=== PATIENT | female | born 1950 | race Caucasian/White ===

== ENCOUNTER 2020-09-22 17:43 | Outpatient (RCR) | payer MEDICARE, OTHER, SELFPAY ==
[2020-09-22] MEDS: COVID-19 VACC, MRNA(PFIZER)/PF 30 MCG/0.3 ML SYRINGE IM (16:17)
[2020-10-13] MEDS: COVID-19 VACC, MRNA(PFIZER)/PF 30 MCG/0.3 ML SYRINGE IM (16:04)
== END 2020-12-20 23:59 ==
LOC: IMMUN 17:43
PROVIDERS: PCP Internal Medicine; Visit Provider Family Medicine
DX: Z23 Encounter for immunization (principal)
CPT/HCPCS: 0001A; 0002A; 91300

== ENCOUNTER 2024-05-01 12:00 | Outpatient (RCR) | payer MEDICARE, SELFPAY ==
--- NOTE | 2024-04-08 12:17 | HP.PTEVAL_ITS ---
Patient's Visit Information Visit Information Visit Information: OMER SANFORD is a 74 year old F referred to Physical Therapy by Dr. Kelly Jewell MD with a diagnosis of hydrocephalus and gait instability. Date of Evaluation: 04/08/24 Physical Therapist: Tereso Lucero DPT Visit Plan Frequency: 2x /Week Duration: 4 Weeks Plan: 1) BLE strengthening with focus on L anterior tib (focus on CKC exercises to progress into gait stability) 2) static narrow PHILIP, righting reactions, progressing to dynamic balance 3) gait progression with stepping over objects, uneven surfaces with focus on good L anterior tib control. 4) Pt. also wants to work on ability to get up from floor. Previous B knee and hip replacements, be careful. Subjective Subjective: Pt. is here today for her initial evaluation with diagnosis of hydrocephalus and gait instability. Pt. arrives using rollator today. Pt. reports using rollator for longer walks, cane in the house. Pt. reports falling a couple times per year. She also reports having both knees and hips replaced. She reports having L foot drop after one of her surgeries which has never improved. She reports having a change in her gait over the last year. Pt. is to have an MRI in Apr to determine changes as well. Pt. reports falling ~4 times per year with various reason stemming from catching her L foot to bending over weeding and falling forward. Pt. would like to improve her strength and balance in order to reduce risk for future falls. Objective Objective: POSTURE: Pt. has decent posture, slight sway back posture. Pt. has wide PHILIP as well. PALPATION: Pt. has no pain or swelling in BLEs. NEURO: Pt. has normal sensation and normal DTR of achilles, patellar difficult due to previous TKA bilaterally. Pt. does have difficulty rising on heels and toes, worse on heels. ROM: Pt. has decent ROM of B hips and knees, slight tightness in B calves, L wo rse than R. GAIT: Pt. ambulates with rollator with good control, she does have audible foot slap on L side with difficulty on L eccentric DF. Without AD this is worse and did catch her toe on L side, but was able to stabilize with PT assistance. Increased lateral sway and instability noted with out use of AD. MMT: RLE: ankle: DF 36.4#, PF: 31.0#; knee: ex 40.5#, flexion 23.2#; hip: flexion 27.4#, abd 30.1# LLE: ankle DF: 10.7#, PF: 23.3# knee: ext 37.4#, flexion 22.8#; hip: flexion 27.6#, abd 24.0# TU.9sec with rollator, 13.8sec without AD. Balance/Special Test Scores Functional Gait Assessment Score: 15 % Disability: 50.0000 Lower Extremity Functional Score: 45 TUG Test Time Seconds: 17.9 30 Second Chair Rise Test Seconds: 9 Goals Goal 1:: LTG: Pt. to be I with HEP for balance and LE strengthening. Goal Time Frame: 4-6 Weeks Goal 2:: LTG: Pt. to have increased B LE strength improved by 5# throughout. (currently RLE: ankle: DF 36.4#, PF: 31.0#; knee: ex 40.5#, flexion 23.2#; hip: flexion 27.4#, abd 30.1# LLE: ankle DF: 10.7#, PF: 23.3# knee: ext 37.4#, flexion 22.8#; hip: flexion 27.6#, abd 24.0#) Goal Time Frame: 4-6 Weeks Goal 3:: LTG: Pt. to have improved TUG score to less than 10sec without AD. Goal Time Frame: 4-6 Weeks Goal 4:: LTG: Pt. to have improved 30 second sit to stand rep test to 14. Goal Time Frame: 4-6 Weeks Goal 5:: LTG: Pt. to have improved FGA to 21/20 indicating improved stability with gait. Goal Time Frame: 4-6 Weeks Rehabilitation Potential Physical Therapy Diagnosis: Pt. has signs and symptoms consistent with hydrocephalus and gait instability. Pt. has marked difficulty with L anterior tibialis weakness and decreased L anterior tib motor control. She has marked gait instability and difficulty correcting LOB. Pt. would benefit from PT to address the above limitations progressing back to all previous levels of function. Rehabilitation Potential: Good Anticipated Interventions Patient/Client Instruction: Educate patient on: Condition, Plan of Care, Risk Factors and Benefits of Fitness Program For the Purpose of:: To improve decision making, To facilitate caregiver knowledge, To improve self management, To prevent re-injury, To improve ability to perform tasks related to life management and To improve tolerance to ADL's Therapeutic Exercise to Include: Strength training, Power training, Endurance training, Balance training, Coordination, Body mechanics, Postural training, Flexibilty training, Gait and locomotor training and Neuromotor development For the Purpose of:: To decrease pain, To increase ROM, To improve nutrient delivery to tissue, To increase oxygenation perfusion, To improve muscle performance and motor function, To improve ability to perform ADL's, To increase tolerance to activity/condition/position, To decrease level of supervision to perform tasks, To improve gait and locomotor functions, To improve health of tissue, To improve endurance, To improve balance and To improve safety with gait Text: Thank you for the opportunity to evaluate your patient. For Medicare and Medicare HMO plans, please review the plan of care and approve it. It will need to be FAXED BACK to us at [phone] for Medicare purposes. For Medicare only, by signing this I certify the plan of care. Please let me know if there are questions or concerns regarding this plan of care. Physician Signature: Date:
== END 2024-05-01 19:00 | disposition home or self-care (01) ==
LOC: PT 12:00
PROVIDERS: PCP Internal Medicine; Referring Provider Psychiatry & Neurology Neurology; Visit Provider Psychiatry & Neurology Neurology
DX: R26.81 Unsteadiness on feet (principal); G91.8 Other hydrocephalus
CPT/HCPCS: 97110; 97116; 97161

== ENCOUNTER 2025-01-12 16:02 | Emergency (ER) | payer MEDICARE, SELFPAY ==
[2025-01-12 16:09] VITALS: BP 141/83; PULSE 91; RESP 18; TEMP 37; O2SAT 94; BMI 36.3
--- NOTE | 2025-01-12 17:03 | RAD_ITS ---
PROCEDURE: FEMUR MIN 2 VIEWS 01/12/2025 REASON FOR EXAM: FALL TECHNIQUE: FEMUR MIN 2 VIEWS COMPARISON: None. FINDINGS: Status post left hip arthroplasty. Acute, comminuted, displaced distal left femoral fracture. Left knee arthroplasty. RAD/Femur Min 2 Views IMPRESSION: Distal left femoral fracture. Reading Location: [place] [id number]
--- NOTE | 2025-01-12 17:03 | RAD_ITS ---
PROCEDURE: PELVIS 1 OR 2 VIEWS 01/12/2025 REASON FOR EXAM: FALL TECHNIQUE: PELVIS 1 OR 2 VIEWS COMPARISON: None. FINDINGS: Bilateral hip arthroplasties. No evidence of acute fracture. Degenerative changes of the partially visualized spine. RAD/Pelvis 1 or 2 Views IMPRESSION: Bilateral hip arthroplasties. Reading Location: [place] [id number]
--- NOTE | 2025-01-12 17:03 | EKG12_ITS ---
Test Reason : FALL Blood Pressure : */* mmHG Vent. Rate : 90 BPM Atrial Rate : 90 BPM P-R Int : 168 ms QRS Dur : 74 ms QT Int : 370 ms P-R-T Axes : 33 -4 75 degrees QTcB Int : 452 ms Normal sinus rhythm Inferior infarct , age undetermined Abnormal ECG Confirmed by JEROMY CABRALES, MARIE ([id number]), medical transcription editor GUCCI LEW ([id number]) on 01/13/2025 1:45:37 PM Referred By: Confirmed By: MARIE PINZON MD
--- NOTE | 2025-01-12 17:04 | RAD_ITS ---
PROCEDURE: KNEE 1 OR 2 VIEWS 01/12/2025 REASON FOR EXAM: FALL TECHNIQUE: KNEE 1 OR 2 VIEWS COMPARISON: None. FINDINGS: Acute, comminuted, displaced distal femoral fracture. Left knee arthroplasty. RAD/Knee 1 or 2 Views IMPRESSION: Distal femoral fracture. Reading Location: [place] [id number]
[2025-01-12] MEDS: 0.9% Normal Saline (1000mL) 1,000 ML 999 ML IV (17:14)
[2025-01-12 17:48] LABS: Hematocrit 38.4 % (37-47); Hemoglobin 13.0 g/dL (12.0-15.0); Immature Granulocytes Count 0.060 X10^3/uL (0.0-0.0); Mean Corp Hgb Conc 33.9 g/dL (32-36); Mean Corpuscular Volume 90.1 fL (81-99); Mean Platelet Vol. 10.1 fl (6.2-12.0); NRBC Flagged by Analyzer 0 % (0-5); Platelet Count 341 K/mm3 (150-450); RBC Distribution Width CV 12.5 % (11.6-14.6); RBC Distribution Width SD 40.8 fl (35.1-43.9); Red Blood Count 4.26 M/mm3 (4.2-5.4); White Blood Count 12.3 K/mm3 (4.4-11.0)
--- NOTE | 2025-01-12 17:48 | EDS_ITS ---
HPI History of Present Illness Chief Complaint: Fall Narrative Narrative: Patient is a 74-year-old female with no known significant past medical history who presents to the emergency department the chief complaint of fall and left leg pain. States that she was spraying weeds on the side of a hill when she fell landing and rolling down the hill. States that she not hit her head she not pass out she remembers the entire event however she noted that there was bleeding coming from her thigh and cannot get up. 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 Patient denies any blood thinning medications. PFSH PFSH Home Medications ?Medication ?Instructions ?Recorded ?Last Taken ?Type duloxetine 60 mg capsule,delayed 60 mg PO DAILY Unknown History release albuterol sulfate 90 mcg/actuation 1 puff inhalation Q 4H PRN PRN 06/19/16 Unkn own History aerosol inhaler (Ventolin HFA) Wheezing ciprofloxacin HCl 500 mg tablet 500 mg PO BID ##6 12/28 Unknown Rx Allergy/AdvReac Type Severity Reaction Status Date / Time aspirin AdvReac Shortness Verified 01/12/25 16:09 of breath Penicillins AdvReac Hives Verified 01/12/25 16:09 Social History Smoking Status: Never smoker ROS ROS ED ROS Narrative Constitutional: Patient lying in bed did appear to be uncomfortable secondary to the pain Cardiovascular: Denies chest pain Respiratory: Denies shortness of breath Abdomen: Denies abdominal pain nausea vomit diarrhea : Denies urinary symptoms Neurological: Denies numbness, wheeze, tingling Musculoskeletal: Planes of left thigh pain as noted above Skin: Complains of bleeding coming from the left eye EXAM Physical Exam Narrative Exam Narrative: General: Patient lying in bed rest comfortably do not appear to be acute distress Head: Atraumatic, normocephalic Eyes: PERRL bilaterally, EOMI by, no conjunctival injection noted Neck: Soft, supple, trachea midline Cardiovascular: Regular rate and rhythm no murmurs gallops rubs noted Respiratory: Clear to auscultation bilaterally Abdomen: Soft, nondistended, nontender to palpation Musculoskeletal: Patient has pain with attempted range of motion of her left thigh all other bony prominences palpated joints taken through full range of motion no pain elicited, no tenderness palpation midline of the cervical spine Extremities: DP pulses +2/4 in the bilateral extremities, +5/5 strength noted in the right lower extremity in the bilateral upper extremities strength is limited due to the left lower extremity secondary to pain Neurological: Patient following commands knew that she was at [facility] there is 2024 sensation grossly intact Skin: Warm, dry, patient has a proximately 4 and half centimeter laceration to the left thigh that has oozing from this Const Vital Signs: 01/12/25 16:09 01/12/25 16:11 01/12/25 18:02 Temperature 98.6 F Temperature Source Oral Pulse Rate 91 89 Respiratory Rate 18 18 Respiratory Effort Normal Respiratory Depth Normal Respiratory Pattern Normal Blood Pressure 141/83 H 157/91 H Blood Pressure Mean 102 113 Pulse Ox 94 94 Oxygen Delivery Method Room Air Room Air Room Air MDM MDM MDM Narrative Medical decision making narrative: Patient is a 74-year-old female who presented to the emergency department the chief complaint of fall and left thigh pain. On the differential diagnosis includes but not limited to distal femur fracture, open fracture, hip fracture, tibial plateau fracture. Once workup is obtained reviewed she will be reevaluated. Patient will be given 900 mg of clindamycin as she states that she has hives to penicillin and she states that she had penicillin as an adult. Patient was given IV fluids, morphine, Zofran. Patient still having pain and she was given 1 mg of Dilaudid. Patient's CBC reviewed showed a white blood cell count of 12,000 likely reactive, hemoglobin 13, plate count 341. Patient sodium was 133, potassium normal 3.4, creatinine was 0.71. Patient's AST and ALT are 28 and 25 respectively. Patient's x-rays reviewed by myself which showed a comminuted displaced distal femur fracture that is open, no evidence of periprosthetic hip fracture, patient's femur x-ray was also reviewed by myself which once again showed the distal femur fracture. I reach out to on-call orthopedic surgeon Dr. Mayorga he recommends transfer. I reached out to [facility] spoke with Dr. Cooper who accept patient for transfer to the emergency department. I discussed with Dr. Brady and Dr. Colón who will also except patient for transfer. Patient had a wet dressing applied over the open wound followed by dry dressing followed by Arghav wrap. She was then placed in a knee immobilizer. She remains neurovascularly intact after this. Patient will be transferred [facility] further evaluation management of her open femur fracture. Patient is agreeable this plan all course concerns answered. Lab Data Labs: Laboratory Results - last 24 hr 01/12/25 17:15 WBC 12.3 H RBC 4.26 Hgb 13.0 Hct 38.4 MCV 90.1 MCH 30.5 MCHC 33.9 RDW Std Deviation 40.8 RDW Coeff of Rose Marie 12.5 Plt Count 341 MPV 10.1 Immature Gran % (Auto) 0.500 Neut % (Auto) 67.9 Lymph % (Auto) 21.8 [place] % (Auto) 8.6 Eos % (Auto) 0.8 Baso % (Auto) 0.4 Absolute Neuts (auto) 8.3 H Absolute Lymphs (auto) 2.67 Nucleated RBC % 0 Sodium 133 Potassium 3.4 Chloride 96 L Carbon Dioxide 23.9 Anion Gap 14 BUN 21 H Creatinine 0.71 Estim Creat Clear Calc 69.44 Est GFR (MDRD) Non-Af 89 BUN/Creatinine Ratio 28.9 H Glucose 124 H Calcium 9.3 Total Bilirubin 0.38 AST 28 ALT 25 Alkaline Phosphatase 92 Total Protein 7.0 Albumin 4.3 Globulin 2.7 Albumin/Globulin Ratio 1.6 Discharge Plan Triage Chief Complaint: Fall ED Provider: Cem Nelson Dx/Rx/DC Orders Clinical Impression: Femur open fracture, left, Fall Prescriptions: No Action duloxetine 60 MG capsule 60 mg PO DAILY ciprofloxacin HCl 500 MG tablet 500 mg PO BID Qty: 6 0RF albuterol sulfate [Ventolin HFA] 1 INHALER inhaler 1 puff inhalation Q4H PRN PRN (Reason: Wheezing) Primary Care Provider: Mary Paulson Referrals: Mary Paulson MD [Primary Care Provider] - Print Language: Danish Disposition Disposition: DC/Tx to Another Type of HCF
[2025-01-12] MEDS: Clindamycin 900 MG/50 ML BAG 75 MG IV (17:52)
[2025-01-12 18:02] VITALS: BP 157/91; PULSE 89; RESP 18; O2SAT 94
[2025-01-12 18:17] LABS: AST(SGOT) 28 U/L (<=31); Alanine Aminotransfer ALT/SGPT 25 U/L (<=34); Albumin, Serum 4.3 g/dL (3.4-4.8); Alkaline Phosphatase 92 U/L (35-104); Anion Gap 14 (5-15); BUN 21 mg/dL (4-19); BUN/Creat Ratio 28.9 RATIO (10-20); Calcium,Total 9.3 mg/dL (7.6-11.0); Carbon Dioxide 23.9 mmol/L (21.0-32.0); Chloride 96 mmol/L (98-108); Estimated Creatinine Clearance 69.44 ml/min (50-250); Globulin 2.7 g/dL (2.2-4.2); Glucose 124 mg/dL (70-99); Potassium 3.4 mmol/L (3.3-5.1)
[2025-01-12 19:17] VITALS: BP 154/78; PULSE 78; RESP 16; TEMP 37.1; O2SAT 99
== END 2025-01-12 19:18 | disposition other institution (70) ==
PROVIDERS: Emergency Provider Emergency Medicine; PCP Internal Medicine; Visit Provider Emergency Medicine
DX: S72.492B Other fracture of lower end of left femur, initial encounter for open fracture type I or II (principal); W17.81XA Fall down embankment (hill), initial encounter; Y93.89 Activity, other specified; Y92.828 Other wilderness area as the place of occurrence of the external cause; Z96.653 Presence of artificial knee joint, bilateral
CPT/HCPCS: 72170; 73552; 73560; 73562; 80053; 85025; 90471; 93005; 96361; 96365; 96375; 99285; J2405